=== PATIENT | female | born 1940 | race Caucasian/White ===

== ENCOUNTER 2017-06-03 22:08 | Inpatient (IN) | payer MEDICAID ==
[~2017-06-03] VITALS: Ht 167.6 cm; Wt 65.0 kg
[2017-06-03 22:17] VITALS: BP 167/97; PULSE 82; RESP 18; TEMP 98.2; O2SAT 98
[2017-06-03] MEDS ORDERED: PRED10 PO (22:28)
--- NOTE | 2017-06-03 22:40 | PD ---
HPI Chief Complaint: Fall Time Seen by Provider: 22:17 Travel History International Travel<30 days: No Contact w/Intl Traveler<30days: No Traveled to known affect area: No History of Present Illness HPI The patient is a 76 year old female who presents to the [facility] emergency department with a history of slipping and falling outside on the wet ground prior to arrival. The patient reports that she was not able to get up and weight-bear after the fall. She reports having left hip and leg pain down to the knee. The patient was noted to have some external rotation when ambulance services arrived. The patient additionally reports to me having pain in her low back. She did land on her left buttock area. She denies hitting her head or losing consciousness. She denies having any neck pain, paresthesias , or weakness in her extremities. She reports that she has been on prednisone 10-15 mg daily for the last 2-3 years related to a diagnosis of asthma. She denies having a primary care physician. She reports that her administered 5 Aleve prior to arrival for her pain. On review of systems otherwise, the patient denies having any recent fevers cough, congestion, neck pain, chest pain, shortness of breath, vomiting, diarrhea, urinary symptoms, or neurologic symptoms. The patient reports having a generalized abdominal discomfort since the fall. [facility] Past Medical History Narrative Medical The patient's past medical history is significant for acid reflux, asthma, chronic sinusitis Asthma: Yes Medical other: Yes (SINUSITIS) Past Surgical History Narrative Surgical The patient's past surgical history is significant for a tonsillectomy. Tonsillectomy: Yes Social History Alcohol Use: Yes Tobacco Use: No Substance Use: No Allergies-Medications (Allergen,Severity, Reaction): Coded Allergies: No Known Allergies (Unverified , 06/03/17) Reported Meds & Prescriptions Reported Meds & Active Scripts Active Reported Prednisone 10 Mg Tab 10 Mg PO DAILY Narrative Medication Ventolin as needed Review of Systems Except as stated in HPI: all other systems reviewed are Neg General / Constitutional: No: Fever Eyes: No: Visual changes HENT: No: Headaches, Neck Stiffness, Neck Pain Cardiovascular: No: Chest Pain or Discomfort Respiratory: No: Shortness of Breath Gastrointestinal: Positive: Abdominal Pain, No: Nausea, Vomiting, Diarrhea Genitourinary: No: Dysuria Musculoskeletal: Positive: Myalgias, Arthralgias, No: Pain Skin: No Rash Neurologic: No: Weakness, Focal Abnormalities, Change in Mentation, Slurred Speech, Sensory Disturbance Psychiatric: No: Depression Endocrine: No: Polydipsia Hematologic/Lymphatic: No: Easy Bruising Physical Exam Narrative General: The patient is a well-developed well-nourished female, uncomfortable appearing on arrival with her left leg propped up on a pillow. Head and Neck exam: Head is normocephalic atraumatic. Eyes: EOMI, pupils are equal round and reactive to light. Nose: Midline septum with pink mucous membranes Mouth: Dentition unremarkable. Moist mucus membranes. Posterior oropharynx is not erythematous. No tonsillar hypertrophy. Uvula midline. Airway patent. Neck: No palpable lymphadenopathy. No nuchal rigidity. No thyromegaly. Cardiovascular: Regular rate and rhythm without murmurs, gallops, or rubs. Lungs: Clear to auscultation bilaterally. No wheezes, rhonchi, or rales. Abdomen: Soft, without tenderness to palpation in all 4 quadrants of the abdomen. No guarding, rebound, or rigidity. Normal bowel sounds are audible. No tenderness on palpation of McBurney's point. Negative Mccormick sign. Extremities: No clubbing, cyanosis, or edema. 2+ pulses in all 4 extremities. The patient reports left hip pain that radiates down to the knee with any attempts at range of motion of her left leg. Patient has no ankle or foot tenderness, no tib-fib tenderness on palpation. The patient is externally rotated and slightly shortened in the left lower extremity. Back: No spinous process tenderness to palpation. No step-off or crepitus. No erythema or ecchymosis. No costovertebral angle tenderness to palpation. Neurologic Exam: Grossly nonfocal. Skin Exam: No rash noted. Intact skin that is warm and dry. Data Data Last Documented VS Vital Signs Date Time Temp Pulse Resp B/P (MAP) Pulse Ox O2 Delivery O2 Flow Rate FiO2 06/03/17 23:56 20 06/03/17 23:52 65 162/74 (103) 96 Room Air 06/03/17 22:17 98.2 Orders Orders Electrocardiogram (06/03/17 22:30) Complete Blood Count With Diff (06/03/17 22:30) Comprehensive Metabolic Panel (06/03/17 22:30) Creatine Kinase (Cpk) (06/03/17 22:30) Ckmb (Isoenzyme) Profile (06/03/17 22:30) Troponin I (06/03/17 22:30) Prothrombin Time / Inr (Pt) (06/03/17 22:30) Act Partial Throm Time (Ptt) (06/03/17 22:30) Lipase (06/03/17 22:30) Urinalysis - C+S If Indicated (06/03/17 22:30) Magnesium (Mg) (06/03/17 22:30) Chest, Single Ap (06/03/17 22:30) Iv Access Insert/Monitor (06/03/17 22:30) Ecg Monitoring (06/03/17:30) Oximetry (06/03/17 22:30) Ct Thor Spine W/O Contrast (06/03/17 22:30) Ct Lumb Spine W/O Contrast (06/03/17 22:30) Hip, Uni(Ap&Lat) W Ap Pelvis (06/03/17 22:30) Morphine Inj (Morphine Inj) (06/03/17 23:00) Ondansetron Inj (Zofran Inj) (06/03/17 23:00) Sodium Chlor 0.9% 1000 Ml Inj (Ns 1000 M (06/03/17 23:00) Knee, Ltd (1 Or 2vws) (06/03/17 22:30) Urine Culture (06/03/17 23:15) Urinary Catheter Insert/Apply (06/04/17 00:06) Admit Order (Ed Use Only) (06/04/17 00:36) Labs Laboratory Tests Test 06/03/17 22:30 06/03/17 23:15 White Blood Count 18.9 TH/MM3 Red Blood Count 5.00 MIL/MM3 Hemoglobin 15.3 GM/DL Hematocrit 46.1 % Mean Corpuscular Volume 92.1 FL Mean Corpuscular Hemoglobin 30.5 PG Mean Corpuscular Hemoglobin Concent 33.1 % Red Cell Distribution Width 14.1 % Platelet Count 258 TH/MM3 Mean Platelet Volume 9.4 FL Neutrophils (%) (Auto) 83.0 % Lymphocytes (%) (Auto) 8.4 % Monocytes (%) (Auto) 6.6 % Eosinophils (%) (Auto) 1.5 % Basophils (%) (Auto) 0.5 % Neutrophils # (Auto) 15.7 TH/MM3 Lymphocytes # (Auto) 1.6 TH/MM3 Monocytes # (Auto) 1.3 TH/MM3 Eosinophils # (Auto) 0.3 TH/MM3 Basophils # (Auto) 0.1 TH/MM3 CBC Comment DIFF FINAL Differential Comment Prothrombin Time 9.9 SEC Prothromb Time International Ratio 1.0 RATIO Activated Partial Thromboplast Time 21.8 SEC Blood Urea Nitrogen 15 MG/DL Creatinine 0.87 MG/DL Random Glucose 97 MG/DL Total Protein 7.2 GM/DL Albumin 3.8 GM/DL Calcium Level 9.2 MG/DL Magnesium Level 2.1 MG/DL Alkaline Phosphatase 60 U/L Aspartate Amino Transf (AST/SGOT) 25 U/L Alanine Aminotransferase (ALT/SGPT) 24 U/L Total Bilirubin 0.4 MG/DL Sodium Level 143 MEQ/L Potassium Level 3.8 MEQ/L Chloride Level 105 MEQ/L Carbon Dioxide Level 26.1 MEQ/L Anion Gap 12 MEQ/L Estimat Glomerular Filtration Rate 63 ML/MIN Total Creatine Kinase 74 U/L Troponin I LESS THAN 0.02 NG/ML Lipase 190 U/L Urine Color LIGHT-YELLOW Urine Turbidity CLEAR Urine pH 8.0 Urine Specific Elbert 1.007 Urine Protein NEG mg/dL Urine Glucose (UA) NEG mg/dL Urine Ketones 10 mg/dL Urine Occult Blood NEG Urine Nitrite POS Urine Bilirubin NEG Urine Urobilinogen LESS THAN 2.0 MG/DL Urine Leukocyte Esterase SMALL Urine RBC 1 /hpf Urine WBC 2 /hpf Urine Squamous Epithelial Cells 1 /hpf Urine Transitional Epithelial Cells <1 /hpf Urine Bacteria RARE /hpf Urine Mucus FEW /lpf Microscopic Urinalysis Comment CULTURE INDICATED MDM Medical Decision Making Medical Screen Exam Complete: Yes Emergency Medical Condition: Yes Medical Record Reviewed: Yes Differential Diagnosis Left knee fracture, versus referred pain from left hip fracture, versus femur fracture, versus lumbar radiculopathy, versus herniated disc, versus T-spine fracture, versus lumbar spine fracture Narrative Course During the course of the patient's emergency department visit, the patient's history, examination, and differential diagnosis were reviewed with the patient. The patient was placed on a manager monitoring with oximetry and frequent blood pressure monitoring. The patient had IV access obtained and blood work sent for analysis. The patient had an EKG done on arrival that shows a sinus rhythm with frequent premature ventricular complexes, QRS duration is 96 ms, QTC [address] segment elevation is noted. The patient was initially provided morphine for pain, Zofran for nausea, and normal saline IV fluids at a maintenance rate The patient's laboratory studies were reviewed and remarkable for a white count of 18.9, hemoglobin 15.3, platelets 258 with 83 neutrophils, CMP is remarkable for GFR 63, cardiac enzymes within normal limits, lipase 190, PT PTT unremarkable, urinalysis shows 10 ketones positive nitrite small leukocyte esterase rare bacteria, culture indicated. Radiology studies were reviewed and remarkable for a chest x-ray that shows a left basilar subsegmental atelectasis, left hip x-ray reveals a displaced left femoral neck fracture, knee x-ray reveals no acute fracture, lumbar spine CT reveals mild to moderate compression fracture at T11 that appears old, no fracture of the lumbar spine, multilevel disc bulges. CT scan of the T-spine shows kyphosis and diffuse mild degenerative changes, mild to moderate compression fracture superior endplate at T11 of indeterminate age but appears predominantly old, minimal retropulsion of posterior fragments but no canal stenosis. The patient's results were discussed with the patient, including the plan of care. I explained that further testing and/ or monitoring is indicated based on the patient's history, examination, and/ or laboratory findings. Therefore, I recommended admission for additional evaluation. The patient expressed understanding and was agreeable with this plan. The patient was admitted to the hospital in stable condition and sent to a bed under the care of the [facility] service. Physician Communication Physician Communication The patient's case including history, pertinent physical examination findings, and laboratory studies were discussed with Dr. Villagran. It was agreed that the patient would be admitted to the [facility] service. Diagnosis Primary Impression: Left displaced femoral neck fracture Admitting Information Admitting Physician Requests: Admit Muriel Thibodeaux MD Jun 03, 2017 22:40
[2017-06-03] MEDS ORDERED: MORPHINE SULFATE 4 MG/ML INJ IV PUSH ONE (23:00)
[2017-06-03] MEDS: SODIUM CHLOR 0.9% 1000 ML INJ 1,000 ML IV SCH (23:00)
[2017-06-03] MEDS ORDERED: ONDANSETRON HCL 4 MG/2 ML VIAL IV PUSH ONE (23:00)
[2017-06-03 23:01] LABS: AUTOMATED NEUTROPHIL # 15.7 TH/MM3 (1.8-7.7); BASOPHIL # 0.1 TH/MM3 (0-0.2); BASOPHIL % 0.5 % (0.0-2.0); EOSINOPHIL # 0.3 TH/MM3 (0-0.4); EOSINOPHIL % 1.5 % (0.0-4.0); HEMATOCRIT 46.1 % (35.0-46.0); HEMOGLOBIN 15.3 GM/DL (11.6-15.3); LYMPH % 8.4 % (9.0-44.0); LYMPHOCYTE # 1.6 TH/MM3 (1.0-4.8); MEAN CELL VOLUME 92.1 FL (80.0-100.0); MEAN CORPUSCULAR HEMOGLOBIN 30.5 PG (27.0-34.0); MEAN CORPUSCULAR HGB CONC 33.1 % (32.0-36.0); MEAN PLATELET VOLUME 9.4 FL (7.0-11.0); MONO % 6.6 % (0.0-8.0); MONOCYTE # 1.3 TH/MM3 (0-0.9); PLATELET COUNT 258 TH/MM3 (150-450); RED CELL DISTRIBUTION WIDTH 14.1 % (11.6-17.2); WHITE BLOOD COUNT 18.9 TH/MM3 (4.0-11.0)
--- NOTE | 2017-06-03 23:16 | RADRPT ---
EXAM DATE/TIME: 06/03/2017 23:07 [facility] COMPARISON: No previous studies available for comparison. INDICATIONS : Evaluate for pneumonia, pneumothorax, and communicable disease. Left hip fracture. MEDICAL HISTORY : None. SURGICAL HISTORY : None. ENCOUNTER: Initial ACUITY: 1 day PAIN SCORE: 10/10 LOCATION: Left hip FINDINGS: A single view of the chest demonstrates linear density left lung base without evidence of mass, infil trate or effusion. The cardiomediastinal contours are unremarkable. Osseous structures are intact. CONCLUSION: Left basilar subsegmental atelectasis. Larry Horan MD on June 03, 2017 at 23:14 Board Certified Radiologist. This report was verified electronically.
--- NOTE | 2017-06-03 23:16 | RADRPT ---
EXAM DATE/TIME: 06/03/2017 22:48 [facility] COMPARISON: No previous studies available for comparison. INDICATIONS : Fall. Left hip fracture. MEDICAL HISTORY : None. SURGICAL HISTORY : None. ENCOUNTER: Initial ACUITY: 1 day PAIN SCORE: 10/10 LOCATION: Left hip FINDINGS: Two view examination of the left knee demonstrates no evidence of fracture or dislocation. Bony mine ralization is normal. The suprapatellar soft tissues have a normal configuration. CONCLUSION: No acute fracture. Larry Horan MD on June 03, 2017 at 23:15 Board Certified Radiologist. This report was verified electronically.
--- NOTE | 2017-06-03 23:17 | RADRPT ---
EXAM DATE/TIME: 06/03/2017 22:48 [facility] COMPARISON: No previous studies available for comparison. INDICATIONS : Fall. Left hip fracture. MEDICAL HISTORY : None. SURGICAL HISTORY : None. ENCOUNTER: Initial ACUITY: 1 day PAIN SCORE: 10/10 LOCATION: Left hip FINDINGS: Examination of the left hip was performed with AP Pelvis. Displaced femoral neck fracture on the left . The acetabulum is grossly intact. CONCLUSION: Displaced left femoral neck fracture. Larry Horan MD on June 03, 2017 at 23:15 Board Certified Radiologist. This report was verified electronically.
[2017-06-03 23:18] LABS: PROTHROMBIN TIME - PATIENT 9.9 SEC (9.8-11.6)
[2017-06-03 23:23] VITALS: BP 169/87; PULSE 90; RESP 20; O2SAT 98
[2017-06-03 23:35] LABS: ALBUMIN 3.8 GM/DL (3.4-5.0); ALKALINE PHOSPHATASE 60 U/L (45-117); ALT (GPT) 24 U/L (10-53); AST (GOT) 25 U/L (15-37); BICARBONATE 26.1 MEQ/L (21.0-32.0); BLOOD UREA NITROGEN 15 MG/DL (7-18); CALCIUM 9.2 MG/DL (8.5-10.1); CHLORIDE 105 MEQ/L (98-107); CREATININE 0.87 MG/DL (0.50-1.00); GLOMERULAR FILTRATION RATE 63 ML/MIN (>89); GLUCOSE,RANDOM 97 MG/DL (74-106); MAGNESIUM 2.1 MG/DL (1.5-2.5); SODIUM (NA) 143 MEQ/L (136-145); TOTAL BILIRUBIN ADULT 0.4 MG/DL (0.2-1.0); TOTAL PROTEIN 7.2 GM/DL (6.4-8.2); TROPONIN I LESS THAN 0.02 NG/ML (0.02-0.05)
[2017-06-03 23:41] LABS: BACTERIA, URINE RARE /hpf; BILIRUBIN, URINE NEG (NEG); BLOOD, URINE NEG (NEG); GLUCOSE,URINE NEG (NEG); KETONE, URINE 10 mg/dL (NEG); MUCUS URINE FEW /lpf (OCC); NITRITE,URINE POS (NEG); SQUAMOUS EPITHELIAL CELL URINE 1 /hpf (0-5); TRANSITIONAL EPI CELLS, URINE <1 /hpf; URINE COLOR LIGHT-YELLOW (YELLW/STRAW); URINE LEUKOCYTE ESTERASE SMALL (NEG)
[2017-06-03 23:52] VITALS: BP 162/74; PULSE 65; RESP 20; O2SAT 96
--- NOTE | 2017-06-04 00:06 | RADRPT ---
EXAM DATE/TIME: 06/03/2017 23:23 [facility] COMPARISON: No previous studies available for comparison. INDICATIONS : Trauma. Fall. RADIATION DOSE: 25.88 CTDIvol (mGy) ; Combined studies - Thoracic Spine/Lumbar Spine MEDICAL HISTORY : None SURGICAL HISTORY : None. ENCOUNTER: Initial ACUITY: 1 day PAIN SCALE: 5/10 LOCATION: lumbar TECHNIQUE: Volumetric scanning of the lumbar spine was performed. Multiplanar reconstructions in the sagittal, coronal and oblique axial planes were performed. Using automated exposure control and adjustment of the mA and/or kV according to patient size, radiation dose was kept as low as reasonably achievable t o obtain optimal diagnostic quality images. DICOM format image data is available electronically for review and comparison. FINDINGS: VERTEBRAE: Normal vertebral body height. Mild/moderate loss of height at T11 along the superior endplate. Degene rative disc disease L3-4, L4-5 and L5-S1 levels. ALIGNMENT: No evidence of subluxation. T12-L1: The thecal sac has a normal diameter. No evidence of disc bulge or protrusion. The neural foramina are patent bilaterally. L1-L2: The thecal sac has a normal diameter. No evidence of disc bulge or protrusion. The neural foramina are patent bilaterally. L2-L3: The thecal sac has a normal diameter. No evidence of disc bulge or protrusion. The neural foramina are patent bilaterally. L3-L4: Moderate broad-based disc bulge abuts ventral thecal sac without canal stenosis. The neural foramina are patent bilaterally. Moderate facet arthropathy. L4-L5: Moderate broad-based disc bulge abuts ventral thecal sac without canal stenosis. The neural foramina are patent bilaterally. Moderate facet arthropathy. L5-S1: The thecal sac has a normal diameter. No evidence of disc bulge or protrusion. The neural foramina are patent bilaterally. CONCLUSION: 1. Mild to moderate compression fracture at T11 appears old. 2. No fractures lumbar spine. 3. Multilevel disc bulges. Larry Horan MD on June 04, 2017 at 0:02 Board Certified Radiologist. This report was verified electronically.
--- NOTE | 2017-06-04 00:10 | RADRPT ---
EXAM DATE/TIME: 06/03/2017 23:23 [facility] COMPARISON: No previous studies available for comparison. INDICATIONS : Trauma. Fall. RADIATION DOSE: 25.88 CTDIvol (mGy) ; Combined studies MEDICAL HISTORY : None SURGICAL HISTORY : None. ENCOUNTER: Initial ACUITY: 1 day PAIN SCALE: 5/10 LOCATION: thoracic TECHNIQUE: Volumetric scanning of the thoracic spine was performed. Multiplanar reconstructions in the sagittal , coronal and oblique axial planes were performed. Using automated exposure control and adjustment o f the mA and/or kV according to patient size, radiation dose was kept as low as reasonably achievable to obtain optimal diagnostic quality images. DICOM format image data is available electronically f or review and comparison. FINDINGS: The vertebral bodies of the thoracic spine are in normal alignment without evidence of subluxation. Mild to moderate compression fracture lungs superior plate of T11 with slight retropulsion of posteri or fragments. This appears old. No canal stenosis. There is kyphosis and diffuse mild degenerative ch anges. T1-T2: Normal. T2-T3: The thecal sac has a normal diameter. No evidence of disc bulge or protrusion. T3-T4: The thecal sac has a normal diameter. No evidence of disc bulge or protrusion. T4-T5: The thecal sac has a normal diameter. No evidence of disc bulge or protrusion. T5-T6: The thecal sac has a normal diameter. No evidence of disc bulge or protrusion. T6-T7: The thecal sac has a normal diameter. No evidence of disc bulge or protrusion. T7-T8: The thecal sac has a normal diameter. No evidence of disc bulge or protrusion. T8-T9: The thecal sac has a normal diameter. No evidence of disc bulge or protrusion. T9-T10: The thecal sac has a normal diameter. No evidence of disc bulge or protrusion. T10-T11: The thecal sac has a normal diameter. No evidence of disc bulge or protrusion. T11-T12: The thecal sac has a normal diameter. No evidence of disc bulge or protrusion. T12-L1: The thecal sac has a normal diameter. No evidence of disc bulge or protrusion. CONCLUSION: 1. Kyphosis and diffuse mild degenerative changes. 2. Mild to moderate compression fracture lungs superior endplate at T11 of indeterminate age but appe ars predominantly old. Minimal retropulsion of posterior fragments but no canal stenosis. Larry Horan MD on June 04, 2017 at 0:05 Board Certified Radiologist. This report was verified electronically.
[2017-06-04] MEDS ORDERED: MORPHINE SULFATE 4 MG/ML INJ IV PUSH ONE (01:30)
[2017-06-04 01:34] VITALS: BP 139/82; PULSE 68; RESP 20; O2SAT 97
[2017-06-04] MEDS ORDERED: NALOXONE HCL 0.4 MG/ML AMP IV PUSH PRN (02:30)
[2017-06-04] MEDS ORDERED: BISACODYL 10 MG SUPP RECTAL PRN (02:30)
[2017-06-04] MEDS ORDERED: SODIUM CHLORIDE 0.9% FLUSH 10 ML FLUSH IV FLUSH PRN (02:30)
[2017-06-04] MEDS ORDERED: RESP: ALBUTEROL CONC 2.5 MG/0.5 ML NEB NEB PRN (02:30)
[2017-06-04] MEDS ORDERED: MAGNESIUM HYDROXIDE SUSP 30 ML CUP PO PRN (02:30)
[2017-06-04] MEDS ORDERED: ONDANSETRON HCL 4 MG/2 ML VIAL IVP PRN (02:30)
[2017-06-04] MEDS: cefTRIAXone INJ 1,000 MG in SODIUM CHLORIDE 0.9% INJ 100 ML IV SCH (02:30)
[2017-06-04] MEDS ORDERED: LACTULOSE SYRUP 20 GM/30 ML CUP PO PRN (02:30)
[2017-06-04] MEDS ORDERED: ACETAMINOPHEN 325 MG TAB PO PRN (02:30)
[2017-06-04] MEDS ORDERED: SENNOSIDES 8.6 MG TAB PO PRN (02:30)
--- NOTE | 2017-06-04 02:36 | HHI.HP ---
[facility] Primary Care Physician No Primary Care Physician Admission Diagnosis Left femoral neck fx Diagnoses: Travel History International Travel<30 Days: No Contact w/Intl Traveler <30 Da: No Traveled to Known Affected Are: No History of Present Illness 76-year-old female with a past medical history significant for chronic sinusitis and asthma presents to the emergency department after suffering a fall. The patient reports she slipped on wet concrete and fell onto her left hip and buttock. She reports that she was unable to get up and weight-bear after the fall. She reports having left hip and leg pain down to the left knee. The patient denies any loss of consciousness or head trauma associated with the fall. She has no other complaints at this time. No dizziness. No chest pain/shortness of breath. No abdominal pain. No nausea/vomiting/ diarrhea. Review of Systems Except as stated in HPI: all other systems reviewed are Neg Past Family Social History Past Medical History Chronic sinusitis Asthma Past Surgical History Tonsillectomy Reported Medications Reported Meds & Active Scripts Active Reported Prednisone 10 Mg Tab 10 Mg PO DAILY Allergies: Coded Allergies: No Known Allergies (Unverified , 06/03/17) Family History Negative for CAD/DM Social History Occasional alcohol. Denies tobacco and illicit drugs. Physical Exam Vital Signs Vital Signs Date Time Temp Pulse Resp B/P (MAP) Pulse Ox O2 Delivery O2 Flow Rate FiO2 06/04/17 01:34 68 20 139/82 (101) 97 Room Air 06/03/17 23:56 20 06/03/17 23:52 65 20 162/74 (103) 96 Room Air 06/03/17 23:23 90 20 169/87 (114) 98 Room Air 06/03/17 22:17 98.2 82 18 167/97 (120) 98 Physical Exam GENERAL: female lying in bed SKIN: No rashes, ecchymoses or lesions. Cool and dry. HEAD: Atraumatic. Normocephalic. No temporal or scalp tenderness. EYES: Pupils equal round and reactive. Extraocular motions intact. No scleral icterus. No injection or drainage. ENT: Nose without bleeding, purulent drainage or septal hematoma. Throat without erythema, tonsillar hypertrophy or exudate. Uvula midline. Airway patent. NECK: Trachea midline. No JVD or lymphadenopathy. Supple, nontender, no meningeal signs. CARDIOVASCULAR: Regular rate and rhythm without murmurs, gallops, or rubs. RESPIRATORY: Clear to auscultation. Breath sounds equal bilaterally. No wheezes , rales, or rhonchi. GASTROINTESTINAL: Abdomen soft, non-tender, nondistended. No hepato-splenomegaly , or palpable masses. No guarding. MUSCULOSKELETAL: Left leg externally rotated. Neurovascularly intact. 2+ DP pulses. NEUROLOGICAL: Awake and alert. Cranial nerves II through XII intact. Motor and sensory grossly within normal limits. Normal speech. Laboratory Laboratory Tests Test 06/03/17 22:30 06/03/17 23:15 White Blood Count 18.9 Red Blood Count 5.00 Hemoglobin 15.3 Hematocrit 46.1 Mean Corpuscular Volume 92.1 Mean Corpuscular Hemoglobin 30.5 Mean Corpuscular Hemoglobin Concent 33.1 Red Cell Distribution Width 14.1 Platelet Count 258 Mean Platelet Volume 9.4 Neutrophils (%) (Auto) 83.0 Lymphocytes (%) (Auto) 8.4 Monocytes (%) (Auto) 6.6 Eosinophils (%) (Auto) 1.5 Basophils (%) (Auto) 0.5 Neutrophils # (Auto) 15.7 Lymphocytes # (Auto) 1.6 Monocytes # (Auto) 1.3 Eosinophils # (Auto) 0.3 Basophils # (Auto) 0.1 CBC Comment DIFF FINAL Differential Comment Prothrombin Time 9.9 Prothromb Time International Ratio 1.0 Activated Partial Thromboplast Time 21.8 Blood Urea Nitrogen 15 Creatinine 0.87 Random Glucose 97 Total Protein 7.2 Albumin 3.8 Calcium Level 9.2 Magnesium Level 2.1 Alkaline Phosphatase 60 Aspartate Amino Transf (AST/SGOT) 25 Alanine Aminotransferase (ALT/SGPT) 24 Total Bilirubin 0.4 Sodium Level 143 Potassium Level 3.8 Chloride Level 105 Carbon Dioxide Level 26.1 Anion Gap 12 Estimat Glomerular Filtration Rate 63 Total Creatine Kinase 74 Troponin I LESS THAN 0.02 Lipase 190 Urine Color LIGHT-YELLOW Urine Turbidity CLEAR Urine pH 8.0 Urine Specific [place] 1.007 Urine Protein NEG Urine Glucose (UA) NEG Urine Ketones 10 Urine Occult Blood NEG Urine Nitrite POS Urine Bilirubin NEG Urine Urobilinogen LESS THAN 2.0 Urine Leukocyte Esterase SMALL Urine RBC 1 Urine WBC 2 Urine Squamous Epithelial Cells 1 Urine Transitional Epithelial Cells <1 Urine Bacteria RARE Urine Mucus FEW Microscopic Urinalysis Comment CULTURE INDICATED Date/Time Source Procedure Growth Status 06/03/17 23:15 Urine Clean Catch Urine Culture Pending Received Result Diagram: 06/03/17222906/03/172229 Caprini VTE Risk Assessment Caprini VTE Risk Assessment: Mod/High Risk (score >= 2) Caprini Risk Assessment Model Point Value = 1 Point Value = 2 Point Value = 3 Point Value = 5 Age 41-60 Minor surgery BMI > 25 kg/m2 Swollen legs Varicose veins or History of unexplained or recurrent spontaneous Oral contraceptives or hormone replacement Sepsis (< 1 month) Serious lung disease, including pneumonia (< 1 month) Abnormal pulmonary function Acute myocardial infarction Congestive heart failure (< 1 month) History of inflammatory bowel disease Medical patient at bed rest Age 61-74 Arthroscopic surgery Major open surgery (> 45 min) Laparoscopic surgery (> 45 min) Malignancy Confined to bed (> 72 hours) Immobilizing plaster cast Central venous access Age >= 75 History of VTE Family history of VTE Factor V Leiden Prothrombin [id number] Lupus anticoagulant Anticardiolipin antibodies Elevated serum homocysteine Heparin-induced thrombocytopenia Other congenital or acquired thrombophilia Stroke (< 1 month) Elective arthroplasty Hip, pelvis, or leg fracture Acute spinal cord injury (< 1 month) Prophylaxis Regimen Total Risk Factor Score Risk Level Prophylaxis Regimen 0-1 Low Early ambulation 2 Moderate Order ONE of the following: *Sequential Compression Device (SCD) *Heparin 5000 units SQ BID 3-4 Higher Order ONE of the following medications: *Heparin 5000 units SQ TID *Enoxaparin/Lovenox 40 mg SQ daily (WT < 150 kg, CrCl > 30 mL/min) *Enoxaparin/Lovenox 30 mg SQ daily (WT < 150 kg, CrCl > 10-29 mL/min) *Enoxaparin/Lovenox 30 mg SQ BID (WT < 150 kg, CrCl > 30 mL/min) AND/OR *Sequential Compression Device (SCD) 5 or more Highest Order ONE of the following medications: *Heparin 5000 units SQ TID (Preferred with Epidurals) *Enoxaparin/Lovenox 40 mg SQ daily (WT < 150 kg, CrCl > 30 mL/min) *Enoxaparin/Lovenox 30 mg SQ daily (WT < 150 kg, CrCl > 10-29 mL/min) *Enoxaparin/Lovenox 30 mg SQ BID (WT < 150 kg, CrCl > 30 mL/min) AND *Sequential Compression Device (SCD) Assessment and Plan Assessment and Plan Assessment/plan: 1. Left hip fracture Pelvic x-ray significant for displaced left femoral neck fracture Thoracic spine CT significant for mild to moderate compression fracture at T11 of undetermined age but appears predominantly old Orthopedic surgery consulted, appreciate assistance Nothing by mouth Morphine for pain 2. Urinary tract infection UA consistent with UTI Urine culture pending Rocephin 3. Asthma/chronic sinusitis Continue home prednisone Albuterol when necessary FEN NPO Electrolytes: monitor and replete prn NS at 84 cc/hr Holding pharmacologic anticoagulation secondary to operative intervention Physician Certification 2 Midnight Certification Type: Admission for Inpatient Services Order for Inpatient Services The services are ordered in accordance with Medicare regulations or non- Medicare payer requirements, as applicable. In the case of services not specified as inpatient-only, they are appropriately provided as inpatient services in accordance with the 2-midnight benchmark. Estimated LOS (days): 2 2 days is the estimated time the patient will need to remain in the hospital, assuming treatment plan goals are met and no additional complications. Post-Hospital Plan: Not yet determined Zahira Villagran MD Jun 04, 2017 02:36
[2017-06-04] MEDS: MORPHINE SULFATE 4 MG/ML INJ IV PUSH PRN ×3 (04:26→16:28)
[2017-06-04] MEDS: SODIUM CHLOR 0.9% 1000 ML INJ 1,000 ML IV SCH ×2 (04:26→15:42)
[2017-06-04 04:27] VITALS: BP 123/79; PULSE 70; RESP 20; O2SAT 97
[2017-06-04 07:13] VITALS: BP 160/78; PULSE 76; RESP 16; TEMP 98; O2SAT 99
[2017-06-04] MEDS ORDERED: TRANEXAMIC ACID INJ 975 MG in SODIUM CHLORIDE 0.9% INJ 100 ML IV SCH (08:00)
--- NOTE | 2017-06-04 08:02 | EKG ---
Date Performed: 06/03/2017 Time Performed: 23:35:22 PTAGE: 76 years EKG: Sinus rhythm WITH FREQUENT VENTRICULAR PREMATURE COMPLEXES NONSPECIFIC T-WAVE ABNORMALITY ABNORMAL RHYTHM ECG NO PREVIOUS TRACING DOCTOR: Bharat Mathews Interpretating Date/Time 06/04/2017 08:02:06
[2017-06-04] MEDS ORDERED: POVIDONE IODINE 5% (ANTISEPSIS KIT) 4 APPLICATIONS EACH NARE PRN (08:30)
[2017-06-04] MEDS ORDERED: CHLORHEXIDINE GLUCONATE 2 % 1 PACK (2 CLOTHS) TOPICAL PRN (08:30)
[2017-06-04] MEDS ORDERED: LACTATED RINGER'S 1000 ML IV PRN (08:30)
[2017-06-04] MEDS ORDERED: METOPROLOL TARTRATE 25 MG TAB PO PRN (08:30)
[2017-06-04] MEDS ORDERED: SODIUM CHLORID 0.9% 500 ML IV PRN (08:30)
[2017-06-04] MEDS ORDERED: INSULIN HUMAN REGULAR 1,000 UNITS/10 ML VIAL SQ PRN (08:30)
--- NOTE | 2017-06-04 08:49 | MB ---
cc: Dimitri Larios MD DATE: 06/04/2017 REASON FOR CONSULTATION: Left femoral neck fracture. HISTORY OF PRESENT ILLNESS: Sonya is a 76-year-old female. She walked out onto her patio. The concrete was wet and slippery. She lost her balance and fell. She landed on her left hip. She had immediate left hip pain. She was unable to stand or ambulate. She presented to the emergency room where x-rays revealed a displaced left femoral neck fracture. She is currently awake and alert in the emergency department. Pain is worse with movement and is improved with rest. She describes a mechanical fall. She denies dizziness, syncope, loss of consciousness. PAST MEDICAL HISTORY: Illnesses: Chronic sinusitis, asthma. Surgeries: Tonsillectomy. MEDICATIONS: Include prednisone. ALLERGIES: NO KNOWN DRUG ALLERGIES. FAMILY HISTORY: Noncontributory. She denies any familial medical problems. SOCIAL HISTORY: The patient drinks alcohol occasionally. She denies tobacco or drug use. REVIEW OF SYSTEMS: The patient denies headache, visual changes, neck pain, chest pain, shortness of breath, abdominal pain, nausea, vomiting, recent weight loss, fevers or chills, numbness or tingling of extremities or recent weight loss. She complains of chronic sinus congestion. She complains of left hip pain. The pain is worse with movement. PHYSICAL EXAMINATION: GENERAL: The patient is a well-developed, well-nourished, 76-year-old female. She is awake and alert. She is alert and oriented x 3. She is in no acute distress. VITAL SIGNS: Pulse 70, respirations 20, blood pressure 123/79, O2 saturation 97% on room air. HEENT: Head: The patient is normocephalic. Pupils are equal. NECK: Soft, nontender. The trachea is in the midline. ABDOMEN: Soft, nontender, nondistended. EXTREMITIES: Examination of bilateral upper extremities reveals no pain with shoulder, elbow or wrist motion. She has intact sensation in all fingers. She has good capillary refill in all fingers. Radial pulses are palpable. Sensation is intact in all fingers. Examination of the right leg reveals no pain with hip, knee or ankle motion. Skin is intact. Dorsalis pedis pulses palpable. Sensation is intact. Examination of the left leg reveals pain with any hip motion. She is tender to palpation around the left hip. She has no tenderness to her knee, tibia or ankle. Skin is intact. Dorsalis pedis pulses palpable. SKIN: Intact. LABORATORY DATA: The patient has a white blood cell count of 18.9, hematocrit 46.1, and platelet count of 258. INR is 1.0. BUN is 15 and creatinine is 0.87. X-RAYS: X-rays of the left hip were reviewed. X-rays reveal a displaced left femoral neck fracture. IMPRESSION: Displaced left femoral neck fracture. PLAN: The treatment options were discussed with the patient. At this point, I would recommend a left hip hemiarthroplasty. The risks of surgery were discussed including bleeding, infection, injuries to arteries, nerves and blood vessels, hip dislocation, leg length discrepancy, groin pain, as well as medical complications including blood clot, stroke, heart attack and . All questions were answered. I also discussed with the patient the possibility of blood transfusion. She states that she is a [employer] and absolutely refuses any and all blood products. If the patient were to have severe bleeding which is uncontrollable, she would prefer before receiving any blood products. All the patient's questions were answered. I will plan on surgery today. A mid-level provider in my office, nurse practitioner or PA, may see this patient on a follow-up basis and continue to implement the objective of this plan including: Starting or adjusting medications, injections of muscle, tendon, bursa or joints, cast application, orthotic or brace application, physical therapy, further radiographic studies including x-ray, MRI, CT, ultrasounds or bone scan, vascular studies, neurologic studies, or other specialist consultations, and proceeding with surgical management as appropriate. MD RANDALL Dominguez/DL/ , 07:25 AM , 07:55 AM
[2017-06-04] MEDS ORDERED: HYDR-3580 PO (09:46)
[2017-06-04] MEDS ORDERED: CALCTAB19 PO (09:46)
[2017-06-04] MEDS ORDERED: XARE10TA PO (09:46)
[2017-06-04] MEDS ORDERED: VITA500012 PO (09:46)
[2017-06-04] MEDS ORDERED: VITA2000 PO (09:46)
[2017-06-04] MEDS ORDERED: WALKER/ADULT/FO1 MIS (09:46)
[2017-06-04] MEDS ORDERED: ACETAMINOPHEN 1000 MG/100 ML 100 ML IV ONE (09:54)
[2017-06-04] MEDS ORDERED: ceFAZolin INJ 1,000 MG VIAL ONE (10:21)
[2017-06-04] MEDS ORDERED: VANCOMYCIN HCL 1000 MG VIAL ONE (10:21)
[2017-06-04] MEDS ORDERED: GENTAMICIN SULFATE 80 MG/2 ML VIAL ONE (10:21)
[2017-06-04] MEDS ORDERED: FAMOTIDINE 20 MG/2 ML VIAL ONE (10:21)
--- NOTE | 2017-06-04 11:59 | PD.OP ---
cc: Dimitri Guardado MD Operative Report Date of Surgery: Jun 04, 2017 Preoperative Diagnosis: Displaced left femoral neck fracture Postoperative Diagnosis: Procedure: Left hip bipolar jazmin-arthroplasty Anesthesia: Gen. Surgeon: Dimitri Guardado Bar Host/Hostess(s): MORGAN Villagomez PA-C The surgical procedure was assisted by my physician showroom sales assistant. My P.A. presence was necessary throughout this case for the manipulation and positioning of the surgical extremity. My P.A. was assisting me throughout the duration of this procedure. The skill set of a physician showroom sales assistant was medically necessary to complete this procedure. During the surgical case the surgical garment fitter was working at the back table and the physician showroom sales assistant was directly assisting me. Operation and Findings: PLAN OF ACTIVITY Weight bear as tolerated. IMPLANTS USED DePuy Corail size [12 standard collared] stem with size [44] bipolar head and [1 ] neck. DETAILS OF PROCEDURE This patient was brought into the operating room and placed on the OR table. The patient was given anesthesia. The patient received IV antibiotics. The patient was then placed in lateral decubitus position. The hip and leg were prepped with alcohol, followed by Hibiclens and draped in a usual sterile fashion. Clean air was used for this procedure. Time out procedure was performed. The procedure began with a 5 inch incision over the posterolateral hip. The subcutaneous tissue was dissected with the Bovie. The iliotibial band were split in line with fibers. The Charnley retractor was placed. The piriformis and external rotators were released from the femur and tagged with a #1 Vicryl suture. The capsule is now incised and tagged with #1 Vicryl. The femoral neck fracture was now visualized. A corkscrew was now used to remove the femoral head. The femoral head was sized and measured. Soft tissue was now protected. The hip skid was placed underneath the femoral neck. An oscillating saw was used to make a femoral neck cut. At this point attention was turned to preparation of the proximal femur. A box osteotome was used to remove the lateral cortex of the femoral neck. The T- handle reamer was used to open the femoral canal. Next, the canal was broached. A lateralizing reamer was used to help lateralize the prosthesis. At this point a trial head and neck were placed. The hip was reduced. The patient was found to have excellent stability with good range of motion. Trial components were removed. Soft tissue and bone were thoroughly irrigated. A Corail stem was now opened. The stem was now impacted into the proximal femur. Care was taken to keep appropriate anteversion. The head and neck were now impacted onto the stem. The hip was again reduced. The hip was found to have good range of motion and good stability. Leg lengths were clinically equal. The wound was thoroughly irrigated. The capsule, piriformis and iliotibial band were closed with #1 Vicryl. Subcutaneous tissue was closed with 3-0 Vicryl. The skin was closed with keshav. A sterile dressing was applied with Primapore. The patient was placed into a knee immobilizer. The patient was awakened and transferred to the recovery room in stable condition. Needle and sponge counts were correct. Dimitri Guardado MD Jun 04, 2017 11:59
[2017-06-04] MEDS ORDERED: GLYCOPYRROLATE 1 MG/5 ML SYRINGE IV PUSH ONE (12:00)
[2017-06-04] MEDS ORDERED: ONDANSETRON HCL 4 MG/2 ML VIAL IV ONE (12:00)
[2017-06-04] MEDS ORDERED: ePHEDrine/NS 25 MG/5 ML SYRINGE IV ONE (12:00)
[2017-06-04] MEDS ORDERED: MORPHINE SULFATE 4 MG/ML INJ IV PUSH PRN (12:00)
[2017-06-04] MEDS ORDERED: PROPOFOL 200 MG/20 ML AMP IV ONE (12:00)
[2017-06-04] MEDS ORDERED: LIDOCAINE HCL 1% PF 5 ML SYRINGE OTHER ONE (12:00)
[2017-06-04] MEDS ORDERED: SUCCINYLCHOLINE CHLORIDE 200 MG/10 ML VIAL IV ONE (12:00)
[2017-06-04] MEDS ORDERED: Post-op Orders (for Pharmacy) XX ONE (12:00)
[2017-06-04] MEDS ORDERED: DEXAMETHASONE SOD PHOS 4 MG/ML VIAL IV ONE (12:00)
[2017-06-04] MEDS ORDERED: DO NOT ADM ANY ANTICOAGULANT DRUGS PRN (12:26)
[2017-06-04] MEDS ORDERED: ERGOCALCIFEROL (VIT D2) 50,000 UNIT CAP PO ONE (12:45)
[2017-06-04] MEDS ORDERED: *morphine SULFATE 4 MG/ML PERIprocedure ONLY ONE (13:29)
--- NOTE | 2017-06-04 13:55 | RADRPT ---
EXAM DATE/TIME: 06/04/2017 13:59 [facility] COMPARISON: HIP LEFT (AP&LAT 2/3VWS) W AP PELVIS, June 03, 2017, 22:48. INDICATIONS : Post-op left hip. MEDICAL HISTORY : None. SURGICAL HISTORY : None. ENCOUNTER: Initial ACUITY: 1 day PAIN SCORE: 7/10 LOCATION: Left Hip. FINDINGS: The patient is status post left hip replacement with prosthesis in good position. CONCLUSION: Status post left hip replacement with prosthesis in good position. Zach Hook MD on June 04, 2017 at 13:50 Board Certified Radiologist. This report was verified electronically.
[2017-06-04 14:10] VITALS: BP 148/70; PULSE 56; RESP 18; TEMP 97.1; O2SAT 97
[2017-06-04] MEDS ORDERED: ENALAPRILAT 1.25 MG/ML VIAL IV PUSH PRN (14:45)
[2017-06-04] MEDS: SODIUM CHLORIDE 0.9% FLUSH 10 ML FLUSH IV FLUSH SCH ×2 (15:42→20:15)
[2017-06-04] MEDS: predniSONE 10 MG TAB PO SCH (15:42)
[2017-06-04] MEDS: DOCUSATE SODIUM 50 MG/SENNA 8.6 MG TAB PO SCH ×2 (15:42→20:13)
[2017-06-04] MEDS: ACETAMINOPHEN/HYDROcodone 325 MG/7.5 MG TAB PO PRN ×2 (15:42→20:14)
[2017-06-04 19:00] VITALS: BP 121/60; PULSE 62; RESP 14; TEMP 98.2; O2SAT 97
--- NOTE | 2017-06-04 22:06 | HHI.FF ---
Face to Face Verification Diagnosis: (1) S/P hip hemiarthroplasty Occupational Therapy Order: Evaluate and Treat Home Health Nursing Order: Medical education Signs/symptoms of disease process Medication education-adverse effect Nursing assessment with vital signs I have seen patient Sonya Moore on 06/04/17. My clinical findings support the need for the requested home health care services because: Ltd mobility - disease progression I certify that my clinical findings support that this patient is homebound because: Post-op weakness Emelia Boucher MD Jun 04, 2017 22:06
[2017-06-04 23:00] VITALS: BP 122/59; PULSE 76; RESP 18; TEMP 98.7; O2SAT 92
[2017-06-05] VITALS (7 sets, daily range): BP systolic 95–159; BP diastolic 54–88; PULSE 70–90; RESP 16–18; TEMP 97.6–98.3; O2SAT 92–97
[2017-06-05] MEDS: cefTRIAXone INJ 1,000 MG in SODIUM CHLORIDE 0.9% INJ 100 ML IV SCH (04:25)
[2017-06-05] MEDS: ACETAMINOPHEN/HYDROcodone 325 MG/7.5 MG TAB PO PRN ×3 (06:41→18:45)
--- NOTE | 2017-06-05 06:42 | PD.ORT.PN ---
Subjective Subjective Remarks POD 1 s/p left hip hemiarthroplasty -doing well. out of bed yesterday with therapy. pain controlled Objective Vitals Vital Signs Date Time Temp Pulse Resp B/P (MAP) Pulse Ox O2 Delivery O2 Flow Rate FiO2 06/05/17 03:52 97.6 82 18 95/54 (68) 97 06/04/17 23:00 98.7 76 18 122/59 (80) 92 06/04/17 19:00 98.2 62 14 121/60 (80) 97 06/04/17 14:10 97.1 56 18 148/70 (96) 97 06/04/17 13:50 66 16 156/64 (94) 98 Nasal Cannula 2 06/04/17 13:30 64 16 157/64 (95) 100 Nasal Cannula 2 06/04/17 13:15 55 16 151/67 (95) 100 Nasal Cannula 2 06/04/17 13:00 63 16 163/67 (99) 100 Nasal Cannula 2 06/04/17 12:45 66 16 166/70 (102) 99 Nasal Cannula 2 06/04/17 12:25 98.5 72 16 158/70 (99) 100 Nasal Cannula 2 06/04/17 07:45 06/04/17 07:13 98.0 76 16 160/78 (105) 99 Room Air 06/04/17 07:13 99 Room Air 06/04/17 07:13 Room Air I/O 06/04/17 06/04/17 06/04/17 06/05/17 06/05/17 06/05/17 07:00 15:00 23:00 07:00 15:00 23:00 Intake Total 1000 ml 770 ml 480 ml Output Total 800 ml 850 ml 1000 ml 700 ml Balance -800 ml 150 ml -230 ml -220 ml Intake Oral 240 ml 480 ml IV Total 530 ml Other 1000 ml Output Urine Total 800 ml 800 ml 1000 ml 700 ml Estimated Blood Loss 50 ml # Voids 0 # Bowel Movements 0 Result Diagram: 06/03/17222906/03/172229 Imaging Last 24 hours Impressions Hip and Pelvis X-Ray 06/04/17 1155 Signed Impressions: Service Date/Time: Sunday, June 04, 2017 13:59 - CONCLUSION: Status post left hip replacement with prosthesis in good position. Zach Hook MD Objective Remarks LLE: dressings clean and dry. intact. NVI. +CKS. Assessment & Plan Assessment and Plan 1) Left Hip Hemiarthroplasty - POD 1 -WBAT -daily drsesing changes POD 2 -CKS while in bed -posterior hip precautions -CM for DC planning -if does well with therapy today, can look at [facility]. if struggling, will need SNF -f/u with Larios or PA in 2 weeks Tulio Ulloa/Neurological Surgery Teacher PA Jun 05, 2017 06:42
--- NOTE | 2017-06-05 06:43 | HHI.FF ---
Face to Face Verification Diagnosis: (1) S/P hip hemiarthroplasty Physical Therapy Gait training Hip: Total hip, Protocol: Left, Posterior hip precautions Canvas Knee Splint: Other (only while in bed) Right LE Weight Bearing: WB as tolerated Left LE Weight Bearing: WB as tolerated Nursing Dressing Changes: Daily dressing change, Coverderm/Primapore (leave clear mesh in place over incision) I have seen patient Sonya Moore on 06/05/17. My clinical findings support the need for the requested home health care services because: Ltd mobility - disease progression I certify that my clinical findings support that this patient is homebound because: Post-op weakness Tulio Ulloa/First Meredith AGOSTO Jun 05, 2017 06:43
[2017-06-05 07:00] LABS: AUTOMATED NEUTROPHIL # 8.7 TH/MM3 (1.8-7.7); BASOPHIL % 0.2 % (0.0-2.0); EOSINOPHIL # 0.1 TH/MM3 (0-0.4); HEMATOCRIT 39.4 % (35.0-46.0); HEMOGLOBIN 13.1 GM/DL (11.6-15.3); LYMPH % 9.2 % (9.0-44.0); MEAN CELL VOLUME 93.4 FL (80.0-100.0); MEAN CORPUSCULAR HEMOGLOBIN 31.1 PG (27.0-34.0); MEAN CORPUSCULAR HGB CONC 33.3 % (32.0-36.0); MEAN PLATELET VOLUME 9.3 FL (7.0-11.0); MONO % 10.3 % (0.0-8.0); MONOCYTE # 1.1 TH/MM3 (0-0.9); NEUT % 79.3 % (16.0-70.0); PLATELET COUNT 205 TH/MM3 (150-450); RED BLOOD COUNT 4.22 MIL/MM3 (4.00-5.30); RED CELL DISTRIBUTION WIDTH 14.2 % (11.6-17.2)
[2017-06-05 07:16] LABS: BICARBONATE 25.5 MEQ/L (21.0-32.0); CALCIUM 8.5 MG/DL (8.5-10.1); CREATININE 0.87 MG/DL (0.50-1.00)
[2017-06-05] MEDS: predniSONE 10 MG TAB PO SCH (08:36)
[2017-06-05] MEDS: DOCUSATE SODIUM 50 MG/SENNA 8.6 MG TAB PO SCH ×2 (08:37→21:04)
[2017-06-05] MEDS: CHOLECALCIFEROL (VIT D3) 5000 UNIT CAP PO SCH (08:37)
[2017-06-05] MEDS: MORPHINE SULFATE 4 MG/ML INJ IV PUSH PRN (08:48)
[2017-06-05] MEDS: SODIUM CHLORIDE 0.9% FLUSH 10 ML FLUSH IV FLUSH SCH ×2 (09:00→21:05)
[2017-06-05] MEDS: ENOXAPARIN SODIUM 40 MG/0.4 ML SYRINGE SQ SCH (09:50)
[2017-06-05] MEDS ORDERED: INFLUENZA VIRUS VACCINE (QUADRIVALENT) 0.5 ML SYR IM ONE (10:00)
--- NOTE | 2017-06-05 15:20 | HHI.PR ---
Subjective Remarks Is controlled by medications she is doing well with physical therapy. No fever , chills, nausea or vomiting. Objective Vitals Vital Signs Date Time Temp Pulse Resp B/P (MAP) Pulse Ox O2 Delivery O2 Flow Rate FiO2 06/05/17 12:00 98.2 77 18 120/56 (77) 96 06/05/17 09:09 93 Nasal Cannula 2.00 06/05/17 08:00 97.6 90 16 127/64 (85) 92 06/05/17 03:52 97.6 82 18 95/54 (68) 97 06/04/17 23:00 98.7 76 18 122/59 (80) 92 06/04/17 19:00 98.2 62 14 121/60 (80) 97 I/O 06/04/17 06/04/17 06/04/17 06/05/17 06/05/17 06/05/17 07:00 15:00 23:00 07:00 15:00 23:00 Intake Total 1000 ml 770 ml 480 ml Output Total 800 ml 850 ml 1000 ml 700 ml Balance -800 ml 150 ml -230 ml -220 ml Intake Oral 240 ml 480 ml IV Total 530 ml Other 1000 ml Output Urine Total 800 ml 800 ml 1000 ml 700 ml Estimated Blood Loss 50 ml # Voids 0 # Bowel Movements 0 Result Diagram: 06/05/17 0617 06/05/1717 Imaging Last Impressions Hip and Pelvis X-Ray 06/04/17 1155 Signed Impressions: Service Date/Time: Sunday, June 04, 2017 13:59 - CONCLUSION: Status post left hip replacement with prosthesis in good position. Zach Hook MD Thoracic Spine CT 06/03/172229 Signed Impressions: Service Date/Time: Saturday, June 03, 2017 23:23 - CONCLUSION: 1. Kyphosis and diffuse mild degenerative changes. 2. Mild to moderate compression fracture lungs superior endplate at T11 of indeterminate age but appears predominantly old. Minimal retropulsion of posterior fragments but no canal stenosis. Larry Horan MD Lumbar Spine CT 06/03/172229 Signed Impressions: Service Date/Time: Saturday, June 03, 2017 23:23 - CONCLUSION: 1. Mild to moderate compression fracture at T11 appears old. 2. No fractures lumbar spine. 3. Multilevel disc bulges. Larry Horan MD Knee X-Ray 06/03/172229 Signed Impressions: Service Date/Time: Saturday, June 03, 2017 22:48 - CONCLUSION: No acute fracture. Larry Horan MD Chest X-Ray 06/03/172229 Signed Impressions: Service Date/Time: Saturday, June 03, 2017 23:07 - CONCLUSION: Left basilar subsegmental atelectasis. Larry Horan MD Objective Remarks GENERAL: female lying in bed CARDIOVASCULAR: Regular rate and rhythm without murmurs, gallops, or rubs. RESPIRATORY: Clear to auscultation. Breath sounds equal bilaterally. No wheezes , rales, or rhonchi. GASTROINTESTINAL: Abdomen soft, non-tender, nondistended. No hepato-splenomegaly , or palpable masses. No guarding. MUSCULOSKELETAL: Left leg externally rotated. Neurovascularly intact. 2+ DP pulses. NEUROLOGICAL: Awake and alert. Cranial nerves II through XII intact. Motor and sensory grossly within normal limits. Normal speech. Procedures Displaced left femoral neck fracture s/p Left hip bipolar jazmin-arthroplasty A/P Assessment and Plan 1. Displaced left femoral neck fracture s/p Left hip bipolar jazmin-arthroplasty Pelvic x-ray significant for displaced left femoral neck fracture Thoracic spine CT significant for mild to moderate compression fracture at T11 of undetermined age but appears predominantly old Orthopedic surgery consulted, appreciate assistance Morphine for pain 2. Urinary tract infection UA consistent with UTI Urine culture pending Continue Rocephin 3. Asthma/chronic sinusitis Continue home prednisone Albuterol when necessary FEN Electrolytes: monitor and replete prn NS at 84 cc/hr DVT ppx scd/teds, chemical ppx per surgeon DC when cleared by Emelia Argueta MD Jun 05, 2017 15:20
[2017-06-05] MEDS: SODIUM CHLOR 0.9% 1000 ML INJ 1,000 ML IV SCH (22:40)
[2017-06-06] VITALS: BP 150/67; PULSE 70; RESP 18; TEMP 98.5; O2SAT 96
[2017-06-06] MEDS: cefTRIAXone INJ 1,000 MG in SODIUM CHLORIDE 0.9% INJ 100 ML IV SCH (01:54)
[2017-06-06] MEDS: ACETAMINOPHEN/HYDROcodone 325 MG/7.5 MG TAB PO PRN ×4 (01:55→13:25)
--- NOTE | 2017-06-06 07:35 | PD.ORT.PN ---
Subjective Subjective Remarks Doing well. States that she wants to go home rather than going to a rehabilitation center. She lives at home with her Objective Vitals Vital Signs Date Time Temp Pulse Resp B/P (MAP) Pulse Ox O2 Delivery O2 Flow Rate FiO2 06/06/17 00:00 98.5 70 18 150/67 (94) 96 06/05/17 20:54 96 06/05/17 20:00 97.7 88 17 121/62 (81) 94 06/05/17 16:00 98.3 70 18 159/88 (111) 95 06/05/17 12:00 98.2 77 18 120/56 (77) 96 06/05/17 09:09 93 Nasal Cannula 2.00 06/05/17 08:00 97.6 90 16 127/64 (85) 92 I/O 06/05/17 06/05/17 06/05/17 06/06/17 06/06/17 06/06/17 07:00 15:00 23:00 07:00 15:00 23:00 Intake Total 480 ml 480 ml Output Total 700 ml Balance -220 ml 480 ml Intake Oral 480 ml 480 ml Output Urine Total 700 ml # Voids 4 5 # Bowel Movements 0 0 Result Diagram: 06/05/17 0617 06/05/17 0617 Imaging Last 24 hours Impressions Hip and Pelvis X-Ray 06/04/17 1155 Signed Impressions: Service Date/Time: Sunday, June 04, 2017 13:59 - CONCLUSION: Status post left hip replacement with prosthesis in good position. Zach Hook MD Objective Remarks Left lower extremity: Clean dry dressings intact. Knee immobilizer in place. Mild swelling. Distally intact sensation with good capillary refills active dorsiflexion and plantar flexion of foot Assessment & Plan Assessment and Plan 1) Left Hip Hemiarthroplasty - POD 2 -WBAT -daily drsesing changes -CKS while in bed -posterior hip precautions -CM for DC planning -if does well with therapy today, can look at [facility]. if struggling, will need SNF -f/u with [facility] or [facility] in 2 weeks Jose Rankin Jr. Jun 06, 2017 07:35
[2017-06-06 08:00] VITALS: BP 151/69; PULSE 67; RESP 17; TEMP 99.1; O2SAT 94
--- NOTE | 2017-06-06 08:11 | HHI.DS ---
Discharge Summary Admission Date Jun 04, 2017 at 00:39 Discharge Date: Jun 06, 2017 Admitting Diagnosis Left femoral neck fx (1) S/P hip hemiarthroplasty ICD Code: Z96.649 - Presence of unspecified artificial hip joint Procedures Displaced left femoral neck fracture s/p Left hip bipolar jazmin-arthroplasty Brief History - From Admission 76-year-old female with a past medical history significant for chronic sinusitis and asthma presents to the emergency department after suffering a fall. The patient reports she slipped on wet concrete and fell onto her left hip and buttock. She reports that she was unable to get up and weight-bear after the fall. She reports having left hip and leg pain down to the left knee. The patient denies any loss of consciousness or head trauma associated with the fall. She has no other complaints at this time. No dizziness. No chest pain/shortness of breath. No abdominal pain. No nausea/vomiting/ diarrhea. CBC/BMP: 06/05/17 0617 06/05/17 0617 Significant Findings Laboratory Tests Test 06/03/17 22:30 06/03/17 23:15 06/05/17 06:17 White Blood Count 18.9 TH/MM3 (4.0-11.0) Hematocrit 46.1 % (35.0-46.0) Neutrophils (%) (Auto) 83.0 % (16.0-70.0) 79.3 % (16.0-70.0) Lymphocytes (%) (Auto) 8.4 % (9.0-44.0) Neutrophils # (Auto) 15.7 TH/MM3 (1.8-7.7) 8.7 TH/MM3 (1.8-7.7) Monocytes # (Auto) 1.3 TH/MM3 (0-0.9) 1.1 TH/MM3 (0-0.9) Activated Partial Thromboplast Time 21.8 SEC (24.3-30.1) Estimat Glomerular Filtration Rate 63 ML/MIN (>89) 63 ML/MIN (>89) Troponin I LESS THAN 0.02 NG/ML 25-Hydroxy Vitamin D Total 29.3 ng/ML (30-100) Urine Ketones 10 mg/dL (NEG) Urine Nitrite POS (NEG) Urine Leukocyte Esterase SMALL (NEG) Urine Bacteria RARE /hpf (NONE) Urine Mucus FEW /lpf (OCC) Monocytes (%) (Auto) 10.3 % (0.0-8.0) Random Glucose 107 MG/DL (74-106) Chloride Level 110 MEQ/L (98-107) Imaging Last Impressions Hip and Pelvis X-Ray 06/04/17 1155 Signed Impressions: Service Date/Time: Sunday, June 04, 2017 13:59 - CONCLUSION: Status post left hip replacement with prosthesis in good position. Zach Hook MD Thoracic Spine CT [id number]/03/172229 Signed Impressions: Service Date/Time: Saturday, June 03, 2017 23:23 - CONCLUSION: 1. Kyphosis and diffuse mild degenerative changes. 2. Mild to moderate compression fracture lungs superior endplate at T11 of indeterminate age but appears predominantly old. Minimal retropulsion of posterior fragments but no canal stenosis. Larry Horan MD Lumbar Spine CT [id number]/03/172229 Signed Impressions: Service Date/Time: Saturday, June 03, 2017 23:23 - CONCLUSION: 1. Mild to moderate compression fracture at T11 appears old. 2. No fractures lumbar spine. 3. Multilevel disc bulges. Larry Horan MD Knee X-Ray [id number]/03/172229 Signed Impressions: Service Date/Time: Saturday, June 03, 2017 22:48 - CONCLUSION: No acute fracture. Larry Horan MD Chest X-Ray [id number]/03/172229 Signed Impressions: Service Date/Time: Saturday, June 03, 2017 23:07 - CONCLUSION: Left basilar subsegmental atelectasis. Larry Horan MD PE at Discharge GENERAL: female lying in bed CARDIOVASCULAR: Regular rate and rhythm without murmurs, gallops, or rubs. RESPIRATORY: Clear to auscultation. Breath sounds equal bilaterally. No wheezes , rales, or rhonchi. GASTROINTESTINAL: Abdomen soft, non-tender, nondistended. No hepato-splenomegaly , or palpable masses. No guarding. MUSCULOSKELETAL: Left leg externally rotated. Neurovascularly intact. 2+ DP pulses. NEUROLOGICAL: Awake and alert. Cranial nerves II through XII intact. Motor and sensory grossly within normal limits. Normal speech. Pt update on day of discharge Feels better. Pain is controlled by medications. No nausea vomiting no diarrhea or constipation. No shortness of breath no wheezing. Feels comfortable to go home at bedside. Says they did buy all the appliances that she needs at home and all are delivered at home. Has support at home. She will follow-up as outpatient with PCP and consultants. Follow-up will follow up with PT as outpatient. Hospital Course 1. Displaced left femoral neck fracture s/p Left hip bipolar jazmin-arthroplasty Pelvic x-ray significant for displaced left femoral neck fracture Thoracic spine CT significant for mild to moderate compression fracture at T11 of undetermined age but appears predominantly old Orthopedic surgery consulted, appreciate assistance Morphine for pain 2. Urinary tract infection UA consistent with UTI Urine culture pending Continue Rocephin 3. Asthma/chronic sinusitis Continue home prednisone Albuterol when necessary FEN Electrolytes: monitor and replete prn NS at 84 cc/hr DVT ppx scd/teds, chemical ppx per surgeon Patient improved. Piercing patient says she does not have insurance however she will follow-up as outpatient with PT. Also she did buy all the appliances that she needs at home and she has support at home. Discharge is stable condition to follow-up with PCP and consultants as outpatient. Pt Condition on Discharge: Stable Discharge Disposition: Discharge Home Discharge Time: > 30 minutes Discharge Instructions DIET: Follow Instructions for: Heart Healthy Diet Activities you can perform: Weight Bearing as Bee Follow up Referrals: Orthopedics - 2 Weeks @ [facility] with Dimitri Larios MD PCP Follow-up - 2-3 Days New Medications: Calcium Carbonate-Vitamin D (Calcium 600+D 200) 600-200 Mg-Unit Tab 1 TAB PO BID for Nutritional Supplement, #60 TAB 0 Refills Cholecalciferol (Vitamin D3) 2,000 Unit Cap 2000 UNITS PO DAILY for Nutritional Supplement, #60 CAP 0 Refills Ergocalciferol (Ergocalciferol) 50,000 Unit Cap 73341 UNITS PO Q7D for Nutritional Supplement, #8 CAP Hydrocodone-Acetaminophen (Hydrocodone-Acetaminophen) 7.5 Mg-325 Mg Tab 1 TAB PO Q4H PRN for PAIN, #60 TAB 0 Refills Rivaroxaban (Xarelto) 10 Mg Tab 10 MG PO DAILY for Blood Clot Prevention, #14 TAB 0 Refills Walker/Adult/Folding (Walker/Adult/Folding) 1 Mis Mis EA .XX DIRECTED, #1 0 Refills Continued Medications: Prednisone (Prednisone) 10 Mg Tab 10 MG PO DAILY, TAB 0 Refills Emelia Boucher MD Jun 06, 2017 08:11
[2017-06-06] MEDS: CHOLECALCIFEROL (VIT D3) 5000 UNIT CAP PO SCH (09:11)
[2017-06-06] MEDS: DOCUSATE SODIUM 50 MG/SENNA 8.6 MG TAB PO SCH (09:11)
[2017-06-06] MEDS: predniSONE 10 MG TAB PO SCH (09:11)
[2017-06-06] MEDS: SODIUM CHLORIDE 0.9% FLUSH 10 ML FLUSH IV FLUSH SCH (09:13)
[2017-06-06 10:40] VITALS: O2SAT 94
[2017-06-06 12:00] VITALS: BP 174/73; PULSE 57; RESP 17; TEMP 98.7; O2SAT 95
[2017-06-06] MEDS: ENOXAPARIN SODIUM 40 MG/0.4 ML SYRINGE SQ SCH (13:25)
== END 2017-06-06 14:59 | disposition home health service (06) | DRG 470 ==
LOC: NEPC 22:08 → NEDA 06-04 00:39 → NEDH 06-04 06:30 → N06A 06-04 14:24
PROVIDERS: ADMIT Hospitalist; ATTEND Hospitalist
PROC: 0SRS0JA Replacement of Left Hip Joint, Femoral Surface with Synthetic Substitute, Uncemented, Open Approach (ICD-10-PCS; principal; 2017-06-04 10:35)
DX: S72.002A Fracture of unspecified part of neck of left femur, initial encounter for closed fracture (principal); M48.54XA Collapsed vertebra, not elsewhere classified, thoracic region, initial encounter for fracture; N39.0 Urinary tract infection, site not specified; J98.11 Atelectasis; W01.0XXA Fall on same level from slipping, tripping and stumbling without subsequent striking against object, initial encounter; J45.909 Unspecified asthma, uncomplicated; J32.9 Chronic sinusitis, unspecified; Z79.52 Long term (current) use of systemic steroids; K21.9 Gastro-esophageal reflux disease without esophagitis; I49.3 Ventricular premature depolarization; Y92.098 Other place in other non-institutional residence as the place of occurrence of the external cause
CPT/HCPCS: 51702; 71045; 72128; 72131; 73502; 73560; 80048; 80053; 81001; 82306; 82550; 83690; 83735; 84484; 85025; 85610; 85730; 87077; 87086; 87186; 93005; 96361; 96374; 96375; C1776; J0131; J0330; J0690; J0696; J1100; J1580; J1650; J2270; J2405; J3010; J3370; J7030; J7512; L1830